=== PATIENT | male | born 1950 | race Caucasian/White ===

== ENCOUNTER → 2018-11-15 | Outpatient (CLI) | payer MEDICARE, OTHER ==
--- NOTE | 2018-11-16 11:33 | SLEEPCENT ---
DATE OF STUDY: 11/15/2018 ORDERED BY: VON Morales Nocturnal polysomnography was performed for evaluation of sleep physiology in this patient with a history of snoring and irregular breathing in sleep, who has comorbidities of hypertension, cardiac dysrhythmia and cerebrovascular disease. 7 hours of 14 minutes of data were reviewed. There were 334 minutes of sleep identified. Sleep latency was mildly prolonged at 17 minutes. REM latency was prolonged at 120 minutes. Sleep architecture showed fragmentation. There was fair sleep progression with three REM cycles noted. Overall sleep REM time out was however diminished, and sleep efficiency was 77.8%. The electrocardiogram showed what appeared to be sinus rhythm with an average heart rate of 54 beats per minute. Some ectopy was seen and rate variability was seen 38-70 beats per minute. EEG showed fairly normal waveforms for awake and sleep. There were no focal events. There were 32 respiratory events identified of 10 seconds in duration or greater for an apnea-hypopnea index of 5.6. The events were primarily obstructive, not exclusive to sleep stage nor to body posture. Arousals from respiratory events occurred 2.7 times per hour. Significant snoring was noted over the course of the test. Some activity was also seen in the EMG limb leads, however limb movement arousal index was only 2.5. Oxygen desaturations were seen below 90%. The oxygen desaturation index was 01. IMPRESSION: Mild obstructive sleep apnea syndrome (G47.33). Apnea-hypopnea index 5.6. RECOMMENDATION: As the patient's respiratory events did not appear to be postural, referral back to sleep disorder center for pressure therapy may need to be considered. In the interim, alcohol and sedative avoidance should be practiced and caution exercised during the operation of motor vehicles.
== END ==
LOC: M SLEEP 19:22
PROVIDERS: ATTEND Nurse Practitioner Family
DX: G47.33 Obstructive sleep apnea (adult) (pediatric) (principal)

== ENCOUNTER 2019-11-17 09:20 | Day surgery (SDC) | payer MEDICARE, OTHER ==
[~2019-11-17] VITALS: Ht 170.2 cm; Wt 77.6 kg
[~2019-11-17 09:20] MED LIST: ATOR40TA75 PO; ECOT81TA5 PO; HYDR-2809 PO; LEVO112T2 PO; LISI20TA19 PO; METO1TAB7 PO; NS 1,000 ML IV ONE; TRIC145T22 PO; XARE20TA PO
[2019-11-17] MEDS ORDERED: propofoL 200 MG/20 ML VIAL As Ordered ONE ×2 (11:24→11:37)
[2019-11-17] MEDS ORDERED: LIDOCAINE 2% INJ 100 MG/5 ML SDV (FOR ANES.) As Ordered ONE (11:24)
--- NOTE | 2019-11-17 11:37 | ROOR ---
Patient Name: Santo Salcido Procedure Date: 11/17/2019 11:15 AM Date of : 1950 Age: 69 Room: [facility] Gender: Male Note Status: Finalized Procedure: Colonoscopy Indications: High risk colon cancer surveillance: Personal history of colonic polyps Providers: Tyrone Dorado Jr, MD Referring MD: ADDY PIZARRO DO Requesting Provider: Medicines: Propofol per Anesthesia Complications: No immediate complications. Procedure: Pre-Anesthesia Assessment: - Prior to the procedure, a History and Physical was performed, and patient medications and allergies were reviewed. The patient is competent. The risks and benefits of the procedure and the sedation options and risks were discussed with the patient. All questions were answered and informed consent was obtained. Patient identification and proposed procedure were verified by the physician and the nurse in the pre-procedure area and in the procedure room. Mental Status Examination: alert and oriented. Airway Examination: normal oropharyngeal airway and neck mobility. Respiratory Examination: clear to auscultation. CV Examination: normal. ASA Grade Assessment: II - A patient with mild systemic disease. After reviewing the risks and benefits, the patient was deemed in satisfactory condition to undergo the procedure. The anesthesia plan was to use moderate sedation / analgesia (conscious sedation). Immediately prior to administration of medications, the patient was re-assessed for adequacy to receive sedatives. The heart rate, respiratory rate, oxygen saturations, blood pressure, adequacy of pulmonary ventilation, and response to care were monitored throughout the procedure. The physical status of the patient was re-assessed after the procedure. The Colonoscope was introduced through the anus and advanced to the cecum, identified by appendiceal orifice and ileocecal valve. The colonoscopy was performed without difficulty. The patient tolerated the procedure well. The quality of the bowel preparation was adequate. Findings: The rectum, recto-sigmoid colon, descending colon, transverse colon, ascending colon, cecum, appendiceal orifice and ileocecal valve appeared normal. A few small-mouthed diverticula were found in the sigmoid colon. Impression: - The rectum, recto-sigmoid colon, descending colon, transverse colon, ascending colon, cecum, appendiceal orifice and ileocecal valve are normal. - Diverticulosis in the sigmoid colon. - No specimens collected. Recommendation: - Discharge patient to home (ambulatory). - Repeat colonoscopy in 5 years for surveillance. Tyrone Dorado MD Tyrone Dorado Jr, MD 11/17/2019 11:36:51 AM Electronically signed by Tyrone Dorado Jr, MD Number of Addenda: 0 Note Initiated On: 11/17/2019 11:15 AM Estimated Blood Loss: Estimated blood loss: none.
[2019-11-17 11:54] VITALS: BP 128/82
== END 2019-11-17 12:00 | disposition home or self-care (01) ==
LOC: M OPP 09:20
PROVIDERS: ATTEND Surgery
DX: Z12.11 Encounter for screening for malignant neoplasm of colon (principal); Z86.010 Personal history of colon polyps; K57.30 Diverticulosis of large intestine without perforation or abscess without bleeding; I50.9 Heart failure, unspecified; I48.91 Unspecified atrial fibrillation; Z79.82 Long term (current) use of aspirin; Z79.891 Long term (current) use of opiate analgesic; Z79.899 Other long term (current) drug therapy; Z87.891 Personal history of nicotine dependence; Z95.810 Presence of automatic (implantable) cardiac defibrillator

== ENCOUNTER 2022-07-01 09:22 | Inpatient (IN) | payer MEDICARE, OTHER ==
[~2022-07-01] VITALS: Ht 167.6 cm; Wt 76.6 kg
[~2022-07-01 09:22] MED LIST changes: -HYDR-2809 PO; +HYDR-4431 PO; -LISI20TA19 PO; +LISI20TA35 PO; -NS 1,000 ML IV ONE
[2022-07-01] MEDS ORDERED: MORPHINE 4 MG/ML 1ML VIAL/SYRINGE IV ONE (13:25)
[2022-07-01] MEDS ORDERED: NS 1,000 ML IV ONE (13:25)
[2022-07-01] MEDS ORDERED: ONDANSETRON 4MG 2ML VIAL IV ONE (13:25)
[2022-07-01 13:58] LABS: BASO # 0.1 10^3/uL (0.0-0.2); BASO % 0.4 % (0.0-1.0); EOS % 0.2 % (0.0-3.0); HEMATOCRIT 40.8 % (42.0-52.0); HEMOGLOBIN 13.5 g/dl (13.5-17.5); LYMPH # 1.1 10^3/uL (1.5-5.0); LYMPH % 8.9 % (24.0-44.0); MEAN CORPUSCULAR HEMOGLOBIN 30.3 pg (27.0-33.0); MEAN CORPUSCULAR HGB CONC 33.1 g/dl (32.0-36.5); MEAN CORPUSCULAR VOLUME 91.7 fl (80.0-96.0); MONO # 1.1 10^3/uL (0.0-0.8); MONO % 9.1 % (2.0-8.0); NEUTROPHILS % 81.1 % (36.0-66.0); PLATELET COUNT, AUTOMATED 330 10^3/uL (150-450); RED BLOOD COUNT 4.45 10^6/uL (4.30-6.10); WHITE BLOOD COUNT 12.4 10^3/uL (4.0-10.0)
[2022-07-01] MEDS ORDERED: ISOVUE-370 76% 100ML VIAL As Ordered ONE (14:04)
[2022-07-01 14:36] LABS: ALBUMIN 3.9 GM/DL (3.2-5.2); BILIRUBIN,DIRECT 0.7 MG/DL (0.0-0.2); BILIRUBIN,TOTAL 3.3 MG/DL (0.2-1.0); TOTAL PROTEIN 7.3 GM/DL (6.4-8.2)
[2022-07-01] MEDS ORDERED: PIPERACILLIN/TAZOBACTAM SOD 3.375 GM in D5W MINI-BAG PLUS 50 ML IV ONE (14:45)
[2022-07-01 15:05] LABS: CK-MB VALUE MASS < 1.0 NG/ML (<3.6); CPK CREATINE PHOSPHOKINASE 41 U/L (39-308); MB/CK RELATIVE INDEX 2.44 (< OR =4)
[2022-07-01] MEDS ORDERED: FENO48TA8 PO (15:13)
[2022-07-01] MEDS ORDERED: ACET-897 PO (15:13)
[2022-07-01] MEDS ORDERED: HOME MED LIST COMPLETE! XX SCH (15:15)
[2022-07-01 15:36] LABS: RSV AMPLIFICATION NEGATIVE (NEGATIVE)
[2022-07-01] MEDS ORDERED: BUPIVACAINE HCL 0.25% 30ML VIAL As Ordered ONE (16:20)
[2022-07-01] MEDS ORDERED: LIDOCAINE 1% SDV 30ML VIAL As Ordered ONE (16:20)
[2022-07-01] MEDS ORDERED: fentaNYL 250 MCG/5 ML INJECTION As Ordered ONE (16:50)
[2022-07-01] MEDS ORDERED: ROCURONIUM BROMIDE 50 MG/5 ML VIAL As Ordered ONE ×2 (16:50→17:50)
[2022-07-01] MEDS ORDERED: propofoL 200 MG/20 ML VIAL As Ordered ONE (16:50)
[2022-07-01] MEDS ORDERED: MIDAZOLAM INJ 2MG/2ML VIAL (J2250 PER 1MG) As Ordered ONE (16:50)
[2022-07-01] MEDS ORDERED: LIDOCAINE 2% 100MG/5ML SDV (FOR ANES.) As Ordered ONE (16:50)
[2022-07-01] MEDS ORDERED: SUGAMMADEX SODIUM 500 MG/5 ML VIAL (BRIDION) As Ordered ONE (16:51)
[2022-07-01] MEDS ORDERED: PHENYLephrine 500MCG 5ML (100MCG/ML) SYRINGE As Ordered ONE (17:18)
[2022-07-01] MEDS ORDERED: dexameTHASONE 4 MG/ML 1ML VIAL (J1100 PER 1MG) As Ordered ONE (17:31)
[2022-07-01] MEDS ORDERED: METHYLENE BLUE 0.5% (5MG/ML) 10 ML AMP (PROVAYBLUE) As Ordered ONE (17:40)
[2022-07-01] MEDS ORDERED: ePHEDrine SULFATE 25 MG/5 ML(5MG/ML) SYRINGE As Ordered ONE (18:37)
[2022-07-01] MEDS ORDERED: ACETAMINOPHEN 1000MG 100ML IV BTL (OFIRMEV) (J0131 PER 10MG) As Ordered ONE (19:17)
[2022-07-01] MEDS ORDERED: ONDANSETRON 4MG 2ML VIAL As Ordered ONE (19:25)
[2022-07-01] MEDS ORDERED: MORPHINE 4 MG/ML 1ML VIAL/SYRINGE IV PRN (19:40)
[2022-07-01] MEDS ORDERED: MORPHINE 2 MG/ML 1ML VIAL IV PRN (19:40)
[2022-07-01] MEDS ORDERED: LR 1,000 ML IV SCH (19:40)
[2022-07-01] MEDS ORDERED: fentaNYL 100 MCG/2 ML INJECTION IV PRN (19:40)
[2022-07-01] MEDS ORDERED: ONDANSETRON 4MG 2ML VIAL IV PRN (19:40)
[2022-07-01] MEDS ORDERED: PERCOCET 5MG/325MG TAB PO PRN ×3 (19:40)
[2022-07-01 20:49] VITALS: BP 147/67
[2022-07-01] MEDS ORDERED: KETOROLAC 30 MG/ML 1ML VIAL IV SCH (21:00)
[2022-07-01] MEDS: METOPROLOL SUCC *XL* 25MG TAB (TopROL *XL*) PO SCH (21:00)
[2022-07-01] MEDS: PANTOPRAZOLE 40MG VIAL IV SCH (21:19)
[2022-07-01 21:20] VITALS: BP 130/60
[2022-07-01] MEDS: PIPERACILLIN/TAZOBACTAM SOD 3.375 GM in D5W MINI-BAG PLUS 50 ML IV SCH (21:24)
[2022-07-01 22:00] VITALS: BP 110/55
[2022-07-01 23:00] VITALS: BP 111/59
[2022-07-01 23:46] VITALS: BP 107/53
[2022-07-02] VITALS (7 sets, daily range): BP systolic 107–144; BP diastolic 52–71
[2022-07-02] MEDS: PIPERACILLIN/TAZOBACTAM SOD 3.375 GM in D5W MINI-BAG PLUS 50 ML IV SCH ×4 (02:34→21:38)
[2022-07-02] MEDS: LEVOTHYROXINE 112MCG TABLET (0.112MG) PO SCH (05:07)
[2022-07-02] MEDS: LR 1,000 ML IV SCH ×2 (08:53→18:57)
[2022-07-02] MEDS: PANTOPRAZOLE 40MG VIAL IV SCH ×2 (08:53→21:38)
[2022-07-02 09:23] LABS: BASO % 0.1 % (0.0-1.0); HEMOGLOBIN 11.7 g/dl (13.5-17.5); LYMPH # 0.4 10^3/uL (1.5-5.0); LYMPH % 4.4 % (24.0-44.0); MEAN CORPUSCULAR HGB CONC 34.4 g/dl (32.0-36.5); MEAN CORPUSCULAR VOLUME 89.9 fl (80.0-96.0); MONO # 0.4 10^3/uL (0.0-0.8); NEUTROPHILS # 8.2 10^3/uL (1.5-8.5); NEUTROPHILS % 91.1 % (36.0-66.0); PLATELET COUNT, AUTOMATED 272 10^3/uL (150-450); RED BLOOD COUNT 3.78 10^6/uL (4.30-6.10)
[2022-07-02 09:51] LABS: BLOOD UREA NITROGEN 19 MG/DL (7-18); CALCIUM LEVEL 8.9 MG/DL (8.8-10.2); CARBON DIOXIDE LEVEL 26 MEQ/L (21-32); CHLORIDE LEVEL 105 MEQ/L (98-107); CREATININE FOR GFR 1.12 MG/DL (0.70-1.30); GLOMERULAR FILTRATION RATE > 60.0 (>42); GLUCOSE, FASTING 121 MG/DL (70-100); POTASSIUM SERUM 4.2 MEQ/L (3.5-5.1); SODIUM LEVEL 138 MEQ/L (136-145)
[2022-07-02] MEDS: ENOXAPARIN 40MG/0.4ML SYRINGE (J1650 PER 10MG) SC SCH (14:17)
[2022-07-02] MEDS: MORPHINE 2 MG/ML 1ML VIAL IV PRN ×2 (14:27→21:48)
[2022-07-03] VITALS: BP 135/65
[2022-07-03] MEDS: PIPERACILLIN/TAZOBACTAM SOD 3.375 GM in D5W MINI-BAG PLUS 50 ML IV SCH ×4 (03:50→20:37)
[2022-07-03 04:00] VITALS: BP 134/69
[2022-07-03] MEDS: LR 1,000 ML IV SCH ×2 (04:40→14:36)
[2022-07-03 05:44] LABS: BASO % 0.2 % (0.0-1.0); EOS % 0.3 % (0.0-3.0); HEMATOCRIT 33.9 % (42.0-52.0); LYMPH # 1.2 10^3/uL (1.5-5.0); LYMPH % 11.3 % (24.0-44.0); MEAN CORPUSCULAR HEMOGLOBIN 29.5 pg (27.0-33.0); MEAN CORPUSCULAR HGB CONC 32.4 g/dl (32.0-36.5); MEAN CORPUSCULAR VOLUME 90.9 fl (80.0-96.0); MONO # 0.6 10^3/uL (0.0-0.8); MONO % 5.5 % (2.0-8.0); NEUTROPHILS # 8.6 10^3/uL (1.5-8.5); NEUTROPHILS % 82.4 % (36.0-66.0); PLATELET COUNT, AUTOMATED 275 10^3/uL (150-450); RED BLOOD COUNT 3.73 10^6/uL (4.30-6.10); WHITE BLOOD COUNT 10.4 10^3/uL (4.0-10.0)
[2022-07-03 06:41] LABS: BLOOD UREA NITROGEN 14 MG/DL (7-18); C REACTIVE PROTEIN QUANTITATIV 7.08 MG/DL (0.00-0.30); CALCIUM LEVEL 8.8 MG/DL (8.8-10.2); CARBON DIOXIDE LEVEL 28 MEQ/L (21-32); CHLORIDE LEVEL 108 MEQ/L (98-107); CREATININE FOR GFR 0.83 MG/DL (0.70-1.30); GLOMERULAR FILTRATION RATE > 60.0 (>42); GLUCOSE, FASTING 95 MG/DL (70-100); POTASSIUM SERUM 3.9 MEQ/L (3.5-5.1); SODIUM LEVEL 141 MEQ/L (136-145)
[2022-07-03 07:43] VITALS: BP 153/71
[2022-07-03] MEDS: PANTOPRAZOLE 40MG VIAL IV SCH ×2 (08:01→20:37)
[2022-07-03] MEDS: ENOXAPARIN 40MG/0.4ML SYRINGE (J1650 PER 10MG) SC SCH (08:02)
[2022-07-03] MEDS: MORPHINE 2 MG/ML 1ML VIAL IV PRN ×2 (08:02→17:54)
[2022-07-03] MEDS ORDERED: CHLORASEPTIC SPRAY MT PRN (08:35)
[2022-07-03] MEDS ORDERED: GASTROGRAFIN SOLUTION 30ML (Q9963) As Ordered ONE (09:12)
[2022-07-03 11:58] VITALS: BP 159/72
[2022-07-03 16:00] VITALS: BP 144/67
[2022-07-03 20:00] VITALS: BP 148/70
[2022-07-03] MEDS: ACETAMINOPHEN TAB 650MG DOSE (2X325MG) PO PRN (20:38)
[2022-07-04] VITALS (7 sets, daily range): BP systolic 143–158; BP diastolic 70–80
[2022-07-04] MEDS: LR 1,000 ML IV SCH (00:40)
[2022-07-04] MEDS: MORPHINE 2 MG/ML 1ML VIAL IV PRN ×3 (00:52→18:59)
[2022-07-04] MEDS: PIPERACILLIN/TAZOBACTAM SOD 3.375 GM in D5W MINI-BAG PLUS 50 ML IV SCH ×2 (02:09→09:03)
[2022-07-04] MEDS: ACETAMINOPHEN TAB 650MG DOSE (2X325MG) PO PRN ×2 (05:45→20:57)
[2022-07-04 05:51] LABS: BASO % 0.7 % (0.0-1.0); EOS # 0.1 10^3/uL (0.0-0.5); EOS % 2.2 % (0.0-3.0); HEMATOCRIT 32.6 % (42.0-52.0); HEMOGLOBIN 10.5 g/dl (13.5-17.5); LYMPH # 1.1 10^3/uL (1.5-5.0); LYMPH % 19.6 % (24.0-44.0); MEAN CORPUSCULAR HEMOGLOBIN 29.5 pg (27.0-33.0); MEAN CORPUSCULAR HGB CONC 32.2 g/dl (32.0-36.5); MEAN CORPUSCULAR VOLUME 91.6 fl (80.0-96.0); MONO # 0.5 10^3/uL (0.0-0.8); MONO % 8.5 % (2.0-8.0); NEUTROPHILS # 3.7 10^3/uL (1.5-8.5); NEUTROPHILS % 68.8 % (36.0-66.0); PLATELET COUNT, AUTOMATED 262 10^3/uL (150-450); RED BLOOD COUNT 3.56 10^6/uL (4.30-6.10); WHITE BLOOD COUNT 5.4 10^3/uL (4.0-10.0)
[2022-07-04] MEDS ORDERED: MORPHINE 2 MG/ML 1ML VIAL IV ONE (05:55)
[2022-07-04 06:22] LABS: BLOOD UREA NITROGEN 12 MG/DL (7-18); C REACTIVE PROTEIN QUANTITATIV 3.19 MG/DL (0.00-0.30); CALCIUM LEVEL 8.7 MG/DL (8.8-10.2); CARBON DIOXIDE LEVEL 27 MEQ/L (21-32); CHLORIDE LEVEL 107 MEQ/L (98-107); CREATININE FOR GFR 0.85 MG/DL (0.70-1.30); GLOMERULAR FILTRATION RATE > 60.0 (>42); GLUCOSE, FASTING 81 MG/DL (70-100); POTASSIUM SERUM 3.7 MEQ/L (3.5-5.1); SODIUM LEVEL 141 MEQ/L (136-145)
[2022-07-04] MEDS: ENOXAPARIN 40MG/0.4ML SYRINGE (J1650 PER 10MG) SC SCH (09:02)
[2022-07-04] MEDS: PANTOPRAZOLE 40MG VIAL IV SCH ×2 (09:02→20:57)
[2022-07-04] MEDS: NORCO, ANEXSIA 5/325MG TABLET (HYDROcodone/ACETAMINOPHEN) PO PRN ×2 (09:18→15:28)
[2022-07-04] MEDS: ATORVASTATIN 20 MG TAB PO SCH (10:29)
[2022-07-04] MEDS: hydroCHLOROthiazide 12.5 MG CAPSULE PO SCH (10:30)
[2022-07-04] MEDS: LEVOTHYROXINE 112MCG TABLET (0.112MG) PO SCH (11:05)
[2022-07-04] MEDS: FENOFIBRATE 48MG TABLET (TRICOR) PO SCH (12:02)
[2022-07-04] MEDS ORDERED: cefTRIAXone SOD 2 GM in D5W MINI-BAG PLUS 50 ML IV SCH (15:00)
[2022-07-04] MEDS: metroNIDAZOLE 500 MG in IV 1 EA IV SCH ×2 (16:08→23:54)
[2022-07-04] MEDS ORDERED: RIVAROXABAN 20MG TAB (XARELTO) PO SCH (18:00)
[2022-07-04] MEDS: METOPROLOL SUCC *XL* 25MG TAB (TopROL *XL*) PO SCH (20:58)
[2022-07-05] VITALS: BP 156/81
[2022-07-05 05:00] VITALS: BP 158/72
[2022-07-05 06:41] LABS: BASO # 0.1 10^3/uL (0.0-0.2); EOS # 0.1 10^3/uL (0.0-0.5); EOS % 2.4 % (0.0-3.0); HEMATOCRIT 35.2 % (42.0-52.0); HEMOGLOBIN 11.6 g/dl (13.5-17.5); LYMPH # 0.8 10^3/uL (1.5-5.0); LYMPH % 13.4 % (24.0-44.0); MEAN CORPUSCULAR HEMOGLOBIN 29.7 pg (27.0-33.0); MEAN CORPUSCULAR VOLUME 90.3 fl (80.0-96.0); MONO # 0.5 10^3/uL (0.0-0.8); MONO % 8.1 % (2.0-8.0); NEUTROPHILS # 4.4 10^3/uL (1.5-8.5); NEUTROPHILS % 74.6 % (36.0-66.0); PLATELET COUNT, AUTOMATED 297 10^3/uL (150-450)
[2022-07-05 07:05] LABS: BLOOD UREA NITROGEN 8 MG/DL (7-18); C REACTIVE PROTEIN QUANTITATIV 1.72 MG/DL (0.00-0.30); CARBON DIOXIDE LEVEL 30 MEQ/L (21-32); CHLORIDE LEVEL 105 MEQ/L (98-107); CREATININE FOR GFR 0.73 MG/DL (0.70-1.30); GLOMERULAR FILTRATION RATE > 60.0 (>42); GLUCOSE, FASTING 105 MG/DL (70-100); POTASSIUM SERUM 3.8 MEQ/L (3.5-5.1); SODIUM LEVEL 140 MEQ/L (136-145)
[2022-07-05 08:36] VITALS: BP 123/85
[2022-07-05] MEDS: PANTOPRAZOLE 40MG VIAL IV SCH (08:47)
[2022-07-05] MEDS: metroNIDAZOLE 500 MG in IV 1 EA IV SCH (08:47)
[2022-07-05] MEDS: hydroCHLOROthiazide 12.5 MG CAPSULE PO SCH (08:48)
[2022-07-05] MEDS: ATORVASTATIN 20 MG TAB PO SCH (08:48)
[2022-07-05] MEDS: FENOFIBRATE 48MG TABLET (TRICOR) PO SCH (09:35)
[2022-07-05] MEDS ORDERED: CEFD300C41 PO (10:51)
[2022-07-05] MEDS ORDERED: METO1TAB32 PO (10:51)
[2022-07-05] MEDS ORDERED: FLAG375C PO (10:53)
[2022-07-05] MEDS ORDERED: PROT1TAB2 PO (13:49)
== END 2022-07-05 12:33 | disposition home or self-care (01) | DRG 328 ==
LOC: M ED 09:22 → M ED INP 17:05 → M PCU 20:35
PROVIDERS: ADMIT Family Medicine; ATTEND Family Medicine
PROC: 0DU647Z Supplement Stomach with Autologous Tissue Substitute, Percutaneous Endoscopic Approach (ICD-10-PCS; principal; 2022-07-02)
DX: K28.5 Chronic or unspecified gastrojejunal ulcer with perforation (principal); M25.511 Pain in right shoulder; I48.91 Unspecified atrial fibrillation; I25.10 Atherosclerotic heart disease of native coronary artery without angina pectoris; E03.9 Hypothyroidism, unspecified; E78.5 Hyperlipidemia, unspecified; I25.2 Old myocardial infarction; G47.33 Obstructive sleep apnea (adult) (pediatric); M25.512 Pain in left shoulder; K29.80 Duodenitis without bleeding; K29.70 Gastritis, unspecified, without bleeding; Z79.890 Hormone replacement therapy; Z79.82 Long term (current) use of aspirin; Z87.891 Personal history of nicotine dependence; Z79.899 Other long term (current) drug therapy; Z79.01 Long term (current) use of anticoagulants; Z95.810 Presence of automatic (implantable) cardiac defibrillator

== ENCOUNTER → 2022-10-21 | Outpatient (CLI) | payer MEDICARE, OTHER ==
[~2022-10-21] MED LIST changes: +ACET-897 PO; +CEFD300C41 PO; +FENO48TA8 PO; +FLAG375C PO; +METO1TAB32 PO; +PROT1TAB2 PO
== END ==
LOC: M RAD 11:10
PROVIDERS: ATTEND Physician Assistant
DX: R06.09 Other forms of dyspnea (principal)

== ENCOUNTER → 2022-11-05 | Outpatient (CLI) | payer MEDICARE, OTHER ==
[~2022-11-05] MED LIST changes: +METO1TAB7
== END ==
LOC: M LABSMTC 10:29
PROVIDERS: ATTEND Anesthesiology
DX: Z01.812 Encounter for preprocedural laboratory examination (principal); Z20.822 Contact with and (suspected) exposure to COVID-19

== ENCOUNTER 2022-11-10 08:01 | Day surgery (SDC) | payer MEDICARE, OTHER ==
[~2022-11-10] VITALS: Ht 172.7 cm; Wt 71.7 kg
[~2022-11-10 08:01] MED LIST changes: +NS 1,000 ML IV ONE
[2022-11-10 10:24] VITALS: BP 123/69
== END 2022-11-10 10:26 | disposition home or self-care (01) ==
LOC: M OPP 08:01
PROVIDERS: ATTEND Surgery
DX: K25.5 Chronic or unspecified gastric ulcer with perforation (principal); K31.89 Other diseases of stomach and duodenum; I48.91 Unspecified atrial fibrillation; I25.10 Atherosclerotic heart disease of native coronary artery without angina pectoris; I10 Essential (primary) hypertension; E78.5 Hyperlipidemia, unspecified; E03.9 Hypothyroidism, unspecified; M19.90 Unspecified osteoarthritis, unspecified site; G47.30 Sleep apnea, unspecified; Z86.73 Personal history of transient ischemic attack (TIA), and cerebral infarction without residual deficits; Z95.810 Presence of automatic (implantable) cardiac defibrillator; Z79.82 Long term (current) use of aspirin; Z79.890 Hormone replacement therapy; Z79.899 Other long term (current) drug therapy

== ENCOUNTER → 2023-01-16 | Outpatient (CLI) | payer MEDICARE, OTHER ==
[~2023-01-16] MED LIST changes: +ISOVUE-300 61% 100ML VIAL As Ordered ONE; +LIDOCAINE 1% MDV 20ML VIAL As Ordered ONE; -NS 1,000 ML IV ONE
== END ==
LOC: M RAD 07:41
PROVIDERS: ATTEND Orthopaedic Surgery
DX: M75.102 Unspecified rotator cuff tear or rupture of left shoulder, not specified as traumatic (principal)
CPT/HCPCS: 23350; 73201; 77002; Q9967

== ENCOUNTER → 2023-02-09 | Outpatient (CLI) | payer MEDICARE, OTHER ==
[~2023-02-09] MED LIST changes: -ISOVUE-300 61% 100ML VIAL As Ordered ONE; -LIDOCAINE 1% MDV 20ML VIAL As Ordered ONE
[2023-02-09 12:38] LABS: APPEARANCE, URINE CLEAR (CLEAR); BACTERIA, URINE AUTO NEGATIVE (NEGATIVE); BILIRUBIN, URINE AUTO NEGATIVE (NEGATIVE); BLOOD, URINE BLOOD 2+ (NEGATIVE); COLOR, URINE YELLOW (YELLOW); GLUCOSE, URINE (UA) AUTO NEGATIVE (NEGATIVE); KETONE, URINE AUTO NEGATIVE (NEGATIVE); LEUKOCYTE ESTERASE, URINE AUTO NEGATIVE (NEGATIVE); MUCUS, URINE SMALL (NEGATIVE); NITRITE, URINE AUTO NEGATIVE (NEGATIVE); PROTEIN, URINE AUTO NEGATIVE (NEGATIVE); RBC, URINE AUTO 7 /HPF (0-3); SPECIFIC GRAVITY URINE AUTO 1.023 (1.002-1.035); SQUAMOUS EPITHELIAL CELL UR AU 0 /HPF (0-6); UROBILINOGEN, URINE AUTO 0.2 mg/dL (0.0-2.0); WBC, URINE AUTO 2 /HPF (0-3)
[2023-02-09 12:56] LABS: BASO # 0.1 10^3/uL (0.0-0.2); BASO % 0.6 % (0.0-1.0); EOS % 0.1 % (0.0-3.0); HEMATOCRIT 40.4 % (42.0-52.0); LYMPH # 0.9 10^3/uL (1.5-5.0); LYMPH % 11.2 % (24.0-44.0); MEAN CORPUSCULAR HEMOGLOBIN 28.7 pg (27.0-33.0); MEAN CORPUSCULAR HGB CONC 32.2 g/dl (32.0-36.5); MEAN CORPUSCULAR VOLUME 89.2 fl (80.0-96.0); MONO # 0.5 10^3/uL (0.0-0.8); MONO % 5.9 % (2.0-8.0); NEUTROPHILS # 6.6 10^3/uL (1.5-8.5); NEUTROPHILS % 81.8 % (36.0-66.0); PLATELET COUNT, AUTOMATED 363 10^3/uL (150-450); RED BLOOD COUNT 4.53 10^6/uL (4.30-6.10); WHITE BLOOD COUNT 8.1 10^3/uL (4.0-10.0)
[2023-02-09 13:04] LABS: INR 1.49; PROTHROMBIN TIME 18.3 SECONDS (12.5-14.5)
[2023-02-09 13:17] LABS: ALKALINE PHOSPHATASE 51 U/L (46-116); ALT/SGPT 21 U/L (7.0-40); AST/SGOT 26 U/L (<34); BILIRUBIN,TOTAL 2.2 MG/DL (0.3-1.2); BLOOD UREA NITROGEN 17 MG/DL (9-23); CALCIUM LEVEL 9.8 MG/DL (8.3-10.6); CARBON DIOXIDE LEVEL 26 MMOL/L (20-31); CHLORIDE LEVEL 103 MMOL/L (98-107); CREATININE FOR GFR 0.93 MG/DL (0.70-1.30); GLOMERULAR FILTRATION RATE > 60.0 (>42); GLUCOSE, FASTING 91 MG/DL (74-106); POTASSIUM SERUM 4.1 MMOL/L (3.5-5.1); SODIUM LEVEL 138 MMOL/L (136-145); TOTAL 25(OH) VITAMIN D 13.5 NG/ML (20.0-100.0); TOTAL PROTEIN 6.7 G/DL (5.7-8.2)
== END ==
LOC: M LAB 11:47
PROVIDERS: ATTEND Orthopaedic Surgery
DX: M75.122 Complete rotator cuff tear or rupture of left shoulder, not specified as traumatic (principal); Z79.01 Long term (current) use of anticoagulants; Z79.899 Other long term (current) drug therapy

== ENCOUNTER → 2023-03-19 | Outpatient (CLI) | payer MEDICARE, OTHER | LOC: M RAD 15:24 | PROVIDERS: ATTEND Surgery Vascular Surgery | DX: I65.23 Occlusion and stenosis of bilateral carotid arteries (principal) ==

== ENCOUNTER → 2023-06-18 | Outpatient (CLI) | payer MEDICARE, OTHER ==
[2023-06-18 09:32] LABS: BASO # 0.1 10^3/uL (0.0-0.2); BASO % 1.2 % (0.0-1.0); EOS # 0.2 10^3/uL (0.0-0.5); EOS % 2.7 % (0.0-3.0); HEMOGLOBIN 10.7 g/dl (13.5-17.5); LYMPH % 16.9 % (24.0-44.0); MEAN CORPUSCULAR HEMOGLOBIN 26.8 pg (27.0-33.0); MEAN CORPUSCULAR HGB CONC 31.5 g/dl (32.0-36.5); MEAN CORPUSCULAR VOLUME 85.2 fl (80.0-96.0); MONO # 0.6 10^3/uL (0.0-0.8); MONO % 10.2 % (2.0-8.0); NEUTROPHILS # 4.1 10^3/uL (1.5-8.5); NEUTROPHILS % 68.7 % (36.0-66.0); PLATELET COUNT, AUTOMATED 378 10^3/uL (150-450); RED BLOOD COUNT 3.99 10^6/uL (4.30-6.10)
[2023-06-18 09:45] LABS: APPEARANCE, URINE HAZY (CLEAR); BACTERIA, URINE AUTO 1+ (NEGATIVE); BILIRUBIN, URINE AUTO NEGATIVE (NEGATIVE); BLOOD, URINE BLOOD 1+ (NEGATIVE); COLOR, URINE YELLOW (YELLOW); GLUCOSE, URINE (UA) AUTO NEGATIVE (NEGATIVE); KETONE, URINE AUTO TRACE mg/dL (NEGATIVE); LEUKOCYTE ESTERASE, URINE AUTO NEGATIVE (NEGATIVE); MUCUS, URINE SMALL (NEGATIVE); NITRITE, URINE AUTO NEGATIVE (NEGATIVE); PROTEIN, URINE AUTO NEGATIVE (NEGATIVE); RBC, URINE AUTO 5 /HPF (0-3); SPECIFIC GRAVITY URINE AUTO 1.021 (1.002-1.035); SQUAMOUS EPITHELIAL CELL UR AU 0 /HPF (0-6); WBC, URINE AUTO 3 /HPF (0-3)
[2023-06-18 09:57] LABS: THYROID STIMULATING HORMONE 4.309 uIU/ML (0.55-4.78)
[2023-06-18 10:03] LABS: ALKALINE PHOSPHATASE 52 U/L (46-116); ALT/SGPT 18 U/L (7.0-40); AST/SGOT 18 U/L (<34); BLOOD UREA NITROGEN 21 MG/DL (9-23); CALCIUM LEVEL 9.5 MG/DL (8.3-10.6); CARBON DIOXIDE LEVEL 27 MMOL/L (20-31); CHLORIDE LEVEL 102 MMOL/L (98-107); CHOLESTEROL LEVEL 173 MG/DL (<200); CHOLESTEROL RISK RATIO 1.94 (<5); CREATININE FOR GFR 1.05 MG/DL (0.70-1.30); GLOMERULAR FILTRATION RATE > 60.0 (>42); GLUCOSE, FASTING 96 MG/DL (74-106); HDL CHOLESTEROL 89.1 MG/DL (>40); LDL CHOLESTEROL 69.9 MG/DL (<100); NON-HDL-C 83.9 MG/DL; POTASSIUM SERUM 4.1 MMOL/L (3.5-5.1); SODIUM LEVEL 138 MMOL/L (136-145); TOTAL PROTEIN 6.5 G/DL (5.7-8.2); TRIGLYCERIDES LEVEL 70 MG/DL (<150)
== END ==
LOC: M LAB 08:59
PROVIDERS: ATTEND Family Medicine
DX: I10 Essential (primary) hypertension (principal); E78.5 Hyperlipidemia, unspecified; I25.10 Atherosclerotic heart disease of native coronary artery without angina pectoris

== ENCOUNTER → 2023-10-19 | Outpatient (CLI) | payer MEDICARE, OTHER ==
[~2023-10-19] MED LIST changes: +CEFD1CAP9 PO; -CEFD300C41 PO
== END ==
LOC: M RAD 11:04
PROVIDERS: ATTEND Physician Assistant
DX: I65.23 Occlusion and stenosis of bilateral carotid arteries (principal); Z95.828 Presence of other vascular implants and grafts

== ENCOUNTER → 2024-06-08 | Outpatient (CLI) | payer MEDICARE, OTHER | LOC: M RAD 13:35 | PROVIDERS: ATTEND Physician Assistant | DX: I65.23 Occlusion and stenosis of bilateral carotid arteries (principal) ==

== ENCOUNTER → 2024-07-06 | Outpatient (CLI) | payer MEDICARE, OTHER ==
[~2024-07-06] MED LIST changes: +ISOVUE-370 76% 100ML VIAL As Ordered ONE
== END ==
LOC: M RAD 09:37
PROVIDERS: ATTEND Physician Assistant
DX: I65.23 Occlusion and stenosis of bilateral carotid arteries (principal); Z95.828 Presence of other vascular implants and grafts
CPT/HCPCS: 70496; 70498; Q9967

== ENCOUNTER → 2024-10-11 | Outpatient (CLI) | payer MEDICARE, OTHER ==
[~2024-10-11] MED LIST changes: -ISOVUE-370 76% 100ML VIAL As Ordered ONE
== END ==
LOC: M PLAIMG 13:08
PROVIDERS: ATTEND Registered Nurse
DX: I47.29 Other ventricular tachycardia (principal)

== ENCOUNTER → 2025-02-02 | Outpatient (CLI) | payer MEDICARE, OTHER | LOC: M RAD 12:02 | PROVIDERS: ATTEND Internal Medicine Cardiovascular Disease | DX: R06.02 Shortness of breath (principal) ==

== ENCOUNTER → 2025-05-08 | Outpatient (CLI) | payer MEDICARE, OTHER ==
[2025-05-08 09:27] LABS: CREATININE FOR GFR 2.36 MG/DL (0.70-1.30); GLOMERULAR FILTRATION RATE 28.2 (>42)
== END ==
LOC: M LAB 07:58
PROVIDERS: ATTEND Physician Assistant
DX: I65.23 Occlusion and stenosis of bilateral carotid arteries (principal)

== ENCOUNTER → 2025-05-22 | Outpatient (CLI) | payer MEDICARE, OTHER ==
[2025-05-22 10:18] LABS: CALCIUM LEVEL 9.6 MG/DL (8.3-10.6); CARBON DIOXIDE LEVEL 27.0 MMOL/L (20-31); CHLORIDE LEVEL 102.0 MMOL/L (98-107); CREATININE FOR GFR 2.26 MG/DL (0.70-1.30); GLOMERULAR FILTRATION RATE 29.7 (>42); POTASSIUM SERUM 4.9 MMOL/L (3.5-5.1); SODIUM LEVEL 139.0 MMOL/L (136-145)
== END ==
LOC: M LAB 08:31
PROVIDERS: ATTEND Physician Assistant
DX: I65.23 Occlusion and stenosis of bilateral carotid arteries (principal)

== ENCOUNTER 2025-06-07 17:42 | Inpatient (IN) | payer MEDICARE, OTHER ==
[~2025-06-07] VITALS: Ht 167.6 cm; Wt 65.9 kg
[2025-06-07] MEDS ORDERED: CLOP75TA2 PO (17:50)
[2025-06-07 18:43] LABS: BASO # 0.0 10^3/uL (0.0-0.2); BASO % 0.3 % (0.0-1.0); EOS # 0.0 10^3/uL (0.0-0.5); EOS % 0.1 % (0.0-3.0); LYMPH # 0.5 10^3/uL (1.5-5.0); LYMPH % 5.1 % (24.0-44.0); MONO # 0.5 10^3/uL (0.0-0.8); MONO % 4.4 % (2.0-8.0); NEUTROPHILS # 9.3 10^3/uL (1.5-8.5); NEUTROPHILS % 89.8 % (36.0-66.0); PLATELET COUNT, AUTOMATED 318 10^3/uL (150-450)
[2025-06-07] MEDS: MORPHINE 4 MG/ML 1 ML VIAL IV PRN (19:52)
[2025-06-07] MEDS: ONDANSETRON 4MG 2ML VIAL IV ONE (19:52)
[2025-06-07 19:58] LABS: ALT/SGPT 29.0 U/L (7.0-40); AST/SGOT 39.0 U/L (<34); CALCIUM LEVEL 9.0 MG/DL (8.3-10.6); CARBON DIOXIDE LEVEL 26.8 MMOL/L (20-31); CHLORIDE LEVEL 102.0 MMOL/L (98-107); CREATININE FOR GFR 1.23 MG/DL (0.70-1.30); GLOMERULAR FILTRATION RATE 61.6 (>42); POTASSIUM SERUM 3.5 MMOL/L (3.5-5.1); SODIUM LEVEL 137.0 MMOL/L (136-145)
[2025-06-07 19:59] LABS: CK-MB VALUE MASS 3.1 NG/ML (<3.6); CPK CREATINE PHOSPHOKINASE 314.0 U/L (46-171); MB/CK RELATIVE INDEX 0.98 (< OR =4)
[2025-06-07] MEDS ORDERED: ISOVUE-370 76% 100 ML VIAL As Ordered ONE (20:29)
[2025-06-07] MEDS: NS (Normal Saline) 0.9% 1,000 ML IV ONE (20:45)
[2025-06-07] MEDS: PIPERACILLIN/TAZOBACTAM SOD 3.375 GM in DEXTROSE 5% (D5W) ADV/MINI-BAG 50 ML IV ONE (21:12)
[2025-06-07] MEDS: [UNRECOGNIZED DRUG - OTHER] IV ONE (21:20)
[2025-06-07] MEDS: NS 0.9% IV ONE (21:20)
[2025-06-07] MEDS ORDERED: LEVO100T5 PO (21:25)
[2025-06-07] MEDS ORDERED: PANT-23 PO (21:25)
[2025-06-07] MEDS ORDERED: ATOR80TA59 PO (21:25)
[2025-06-07] MEDS ORDERED: BISO5TAB14 PO (21:26)
[2025-06-07] MEDS ORDERED: VITA100093 PO (21:29)
[2025-06-07] MEDS ORDERED: IPRA3SP (21:29)
[2025-06-07] MEDS ORDERED: AMIO200T54 PO (21:29)
[2025-06-07] MEDS ORDERED: HOME MED LIST COMPLETE! XX SCH (21:30)
[2025-06-07 21:38] LABS: CK-MB VALUE MASS 3.2 NG/ML (<3.6); CPK CREATINE PHOSPHOKINASE 262.0 U/L (46-171); MB/CK RELATIVE INDEX 1.22 (< OR =4)
[2025-06-07] MEDS ORDERED: ROCURONIUM BROMIDE 50MG/5ML VIAL As Ordered ONE (21:46)
[2025-06-07] MEDS ORDERED: MIDAZOLAM INJ 2 MG/2 ML VIAL As Ordered ONE (21:46)
[2025-06-07] MEDS ORDERED: LIDOCAINE 2% 100 MG/5 ML SDV (FOR ANES.) As Ordered ONE (21:46)
[2025-06-07] MEDS ORDERED: ETOMIDATE 20 MG/10 ML VIAL As Ordered ONE (21:46)
[2025-06-07] MEDS ORDERED: GLUCAGON INJ 1 MG VIAL As Ordered ONE (22:03)
[2025-06-07] MEDS: FACTOR XA,INACTIVATED-ZHZO 400 MG in APPROPRIATE DILUENT 40 ML IV ONE (22:17)
[2025-06-07 22:26] LABS: INR 2.73
[2025-06-07] MEDS: FACTOR XA,INACTIVATED-ZHZO 480 MG in APPROPRIATE DILUENT 48 ML IV ONE (22:28)
[2025-06-07] MEDS ORDERED: PHENYLephrine 500MCG 5ML (100MCG/ML) SYRINGE As Ordered ONE (23:12)
[2025-06-07] MEDS ORDERED: ONDANSETRON 4MG 2ML VIAL As Ordered ONE (23:43)
[2025-06-07] MEDS ORDERED: dexAMETHasone 4 MG/ML 1 ML VIAL As Ordered ONE (23:43)
[2025-06-07] MEDS ORDERED: SUGAMMADEX SODIUM 200 MG/2 ML VIAL As Ordered ONE (23:44)
[2025-06-07] MEDS ORDERED: ACETAMINOPHEN 1000MG/100ML IV BAG As Ordered ONE (23:44)
[2025-06-08] VITALS (25 sets, daily range): BP systolic 113–166; BP diastolic 54–65; TEMP 97–98; O2SAT 93–98
[2025-06-08] MEDS ORDERED: ONDANSETRON 4MG 2ML VIAL IV PRN ×2 (00:35→00:45)
[2025-06-08] MEDS ORDERED: MORPHINE 2 MG/ML 1 ML VIAL IV PRN (00:35)
[2025-06-08] MEDS ORDERED: HYDROmorphone HCL 2 MG/ML 1 ML VIAL IV PRN ×2 (00:45)
[2025-06-08] MEDS ORDERED: IPRATROPIUM 0.5 MG/ALBUTEROL 2.5 MG INH SOL UD 3 ML NEB PRN (00:45)
[2025-06-08 01:14] LABS: PLATELET COUNT, AUTOMATED 254 10^3/uL (150-450)
[2025-06-08] MEDS: IPRATROPIUM 0.5 MG/ALBUTEROL 2.5 MG INH SOL UD 3 ML NEB SCH (01:31)
[2025-06-08] MEDS: NS (Normal Saline) 0.9% 1,000 ML IV SCH (01:54)
[2025-06-08] MEDS: PIPERACILLIN/TAZOBACTAM SOD 3.375 GM in DEXTROSE 5% (D5W) ADV/MINI-BAG 50 ML IV SCH (03:18)
[2025-06-08] MEDS ORDERED: LEVOTHYROXINE 100 MCG TABLET (0.1 MG) PO SCH (06:00)
[2025-06-08] MEDS: LEVOTHYROXINE 100 MCG (0.1 MG) 5ML SDV PF (SOLUTION FORM) IV ONE (06:06)
[2025-06-08] MEDS ORDERED: hydrALAZINE 20 MG/ML 1 ML VIAL IV PRN (08:30)
[2025-06-08] MEDS: PANTOPRAZOLE 40MG VIAL IV SCH (08:48)
[2025-06-08 09:32] LABS: INR 1.71
[2025-06-08 09:43] LABS: BASO # 0.0 10^3/uL (0.0-0.2); BASO % 0.1 % (0.0-1.0); EOS # 0.0 10^3/uL (0.0-0.5); EOS % 0.0 % (0.0-3.0); LYMPH # 0.3 10^3/uL (1.5-5.0); LYMPH % 3.8 % (24.0-44.0); MONO # 0.1 10^3/uL (0.0-0.8); MONO % 1.6 % (2.0-8.0); NEUTROPHILS # 7.7 10^3/uL (1.5-8.5); NEUTROPHILS % 94.0 % (36.0-66.0); PLATELET COUNT, AUTOMATED 286 10^3/uL (150-450)
[2025-06-08 09:48] LABS: ALT/SGPT 26.0 U/L (7.0-40); AST/SGOT 38.0 U/L (<34); CALCIUM LEVEL 8.1 MG/DL (8.3-10.6); CARBON DIOXIDE LEVEL 23.0 MMOL/L (20-31); CHLORIDE LEVEL 105.0 MMOL/L (98-107); CREATININE FOR GFR 1.03 MG/DL (0.70-1.30); GLOMERULAR FILTRATION RATE 76.2 (>42); MAGNESIUM LEVEL 1.8 MG/DL (1.8-2.4); PHOSPHORUS LEVEL 3.0 MG/DL (2.4-5.1); POTASSIUM SERUM 3.5 MMOL/L (3.5-5.1); SODIUM LEVEL 142.0 MMOL/L (136-145)
[2025-06-08] MEDS ORDERED: KCL 20MEQ IN 100ML SWI (KRUN) 20 MEQ in IV 1 EA IV ONE (10:35)
[2025-06-08] MEDS: IPRATROPIUM 0.03% NASAL SPRAY 30 ML (ATROVENT) SCH (10:44)
[2025-06-08] MEDS: MAG SULF 1GM/100ML (MAG RUN) 1 GM in IV 1 EA IV SCH (10:44)
[2025-06-08] MEDS: KCL 10MEQ/100ML SWI (KRUN) 10 MEQ in IV 1 EA IV SCH (10:45)
[2025-06-08] MEDS ORDERED: KCL 10MEQ/100ML SWI (KRUN) 10 MEQ in IV 1 EA IV SCH (11:00)
[2025-06-08] MEDS: HYDROMORPHONE HCL 0.5 MG/0.5 ML SYRINGE IV PRN ×2 (12:14→16:02)
[2025-06-08] MEDS: BISOPROLOL FUM 2.5 MG PER 1/2 TAB PO SCH (20:00)
[2025-06-08] MEDS: AMIODARONE 100 MG TABLET PO SCH (20:00)
[2025-06-08] MEDS: ATORVASTATIN 20 MG TAB PO SCH (20:00)
[2025-06-09] VITALS: BP 114/65; TEMP 97; O2SAT 98
[2025-06-09 04:00] VITALS: BP 128/59; TEMP 97.4; O2SAT 97
[2025-06-09 05:32] LABS: PLATELET COUNT, AUTOMATED 268 10^3/uL (150-450)
[2025-06-09 05:56] LABS: CALCIUM LEVEL 8.3 MG/DL (8.3-10.6); CARBON DIOXIDE LEVEL 24.0 MMOL/L (20-31); CHLORIDE LEVEL 105.0 MMOL/L (98-107); CREATININE FOR GFR 1.01 MG/DL (0.70-1.30); GLOMERULAR FILTRATION RATE 78.0 (>42); POTASSIUM SERUM 4.2 MMOL/L (3.5-5.1); SODIUM LEVEL 140.0 MMOL/L (136-145)
[2025-06-09] MEDS: LEVOTHYROXINE 100 MCG TABLET (0.1 MG) PO SCH ×2 (05:56→13:51)
[2025-06-09 07:47] LABS: FREE T4 0.67 NG/DL (0.89-1.76)
[2025-06-09 08:00] VITALS: BP 141/65; TEMP 97.4; O2SAT 99
[2025-06-09 10:03] LABS: CORTISOL AM 2.3 UG/DL (4.3-22.4)
[2025-06-09 12:00] VITALS: BP 144/73; TEMP 97.5; O2SAT 99
[2025-06-09 16:00] VITALS: BP 146/75; TEMP 97.5; O2SAT 97
[2025-06-09 20:00] VITALS: BP 138/71; TEMP 97.1; O2SAT 98
[2025-06-10] VITALS: BP 141/75; TEMP 97.2; O2SAT 96
[2025-06-10 03:32] VITALS: BP 138/65; TEMP 97.9; O2SAT 97
[2025-06-10 05:16] LABS: PLATELET COUNT, AUTOMATED 301 10^3/uL (150-450)
[2025-06-10 05:39] LABS: CALCIUM LEVEL 8.0 MG/DL (8.3-10.6); CARBON DIOXIDE LEVEL 24.0 MMOL/L (20-31); CHLORIDE LEVEL 109.0 MMOL/L (98-107); CREATININE FOR GFR 1.01 MG/DL (0.70-1.30); GLOMERULAR FILTRATION RATE 78.0 (>42); POTASSIUM SERUM 3.6 MMOL/L (3.5-5.1); SODIUM LEVEL 144.0 MMOL/L (136-145)
[2025-06-10 08:02] VITALS: BP 149/72; TEMP 97.8; O2SAT 93
[2025-06-10] MEDS: ENOXAPARIN 40 MG/0.4 ML SYRINGE (J1650 PER 10MG) SC SCH (11:10)
[2025-06-10] MEDS: D5W/0.45% SODIUM CHLORIDE 1,000 ML IV SCH (11:52)
[2025-06-10 15:59] VITALS: BP 141/66; TEMP 97.1; O2SAT 96
[2025-06-10 16:15] VITALS: BP 147/78; TEMP 98.2; O2SAT 96
[2025-06-10 20:58] VITALS: BP 130/80; TEMP 98.1; O2SAT 96
[2025-06-11 04:20] VITALS: BP 135/70; TEMP 98.6; O2SAT 96
[2025-06-11 06:32] LABS: PLATELET COUNT, AUTOMATED 315 10^3/uL (150-450)
[2025-06-11 06:59] LABS: CALCIUM LEVEL 7.9 MG/DL (8.3-10.6); CARBON DIOXIDE LEVEL 25.0 MMOL/L (20-31); CHLORIDE LEVEL 108.0 MMOL/L (98-107); CREATININE FOR GFR 0.96 MG/DL (0.70-1.30); GLOMERULAR FILTRATION RATE 82.9 (>42); POTASSIUM SERUM 3.9 MMOL/L (3.5-5.1); SODIUM LEVEL 142.0 MMOL/L (136-145)
[2025-06-11] MEDS: D5W/0.45% SODIUM CHLORIDE 1,000 ML IV SCH (10:36)
[2025-06-11 11:56] VITALS: BP 139/72; TEMP 98.1; O2SAT 95
[2025-06-11 20:48] VITALS: BP 150/77; TEMP 98.6; O2SAT 95
[2025-06-12 03:33] VITALS: BP 150/79; TEMP 98.2; O2SAT 96
[2025-06-12 07:10] LABS: PLATELET COUNT, AUTOMATED 338 10^3/uL (150-450)
[2025-06-12 08:02] LABS: CALCIUM LEVEL 8.2 MG/DL (8.3-10.6); CARBON DIOXIDE LEVEL 25 MMOL/L (20-31); CHLORIDE LEVEL 108 MMOL/L (98-107); CREATININE FOR GFR 1.02 MG/DL (0.70-1.30); GLOMERULAR FILTRATION RATE 77.1 (>42); POTASSIUM SERUM 3.2 MMOL/L (3.5-5.1); SODIUM LEVEL 144 MMOL/L (136-145)
[2025-06-12 08:03] LABS: CORTISOL AM 23.4 UG/DL (4.3-22.4); FREE T4 0.77 NG/DL (0.89-1.76)
[2025-06-12] MEDS ORDERED: GASTROGRAFIN SOLUTION 30 ML As Ordered ONE (09:13)
[2025-06-12] MEDS: POTASSIUM CHLORIDE 10MEQ SR TABLET PO ONE (11:44)
[2025-06-12] MEDS: LEVOTHYROXINE 100 MCG (0.1 MG) 5ML SDV PF (SOLUTION FORM) IV SCH (11:44)
[2025-06-12 12:00] VITALS: BP 152/87; TEMP 98.6; O2SAT 98
[2025-06-12] MEDS: KCL 20MEQ IN D5/0.45NS 1000ML 1,000 ML IV SCH (12:34)
[2025-06-12] MEDS: CLOPIDOGREL 75 MG TAB PO SCH (12:35)
[2025-06-12 13:51] LABS: CALCIUM LEVEL 8.8 MG/DL (8.3-10.6); CARBON DIOXIDE LEVEL 27 MMOL/L (20-31); CHLORIDE LEVEL 106 MMOL/L (98-107); CREATININE FOR GFR 0.99 MG/DL (0.70-1.30); GLOMERULAR FILTRATION RATE 79.9 (>42); POTASSIUM SERUM 3.3 MMOL/L (3.5-5.1); SODIUM LEVEL 145 MMOL/L (136-145)
[2025-06-12 20:40] VITALS: BP 166/85; TEMP 98.6; O2SAT 96
[2025-06-13 03:54] VITALS: BP 152/80; TEMP 98.4; O2SAT 97
[2025-06-13 06:23] LABS: PLATELET COUNT, AUTOMATED 301 10^3/uL (150-450)
[2025-06-13 06:44] LABS: CALCIUM LEVEL 8.3 MG/DL (8.3-10.6); CARBON DIOXIDE LEVEL 25 MMOL/L (20-31); CHLORIDE LEVEL 105 MMOL/L (98-107); CREATININE FOR GFR 1.07 MG/DL (0.70-1.30); GLOMERULAR FILTRATION RATE 72.8 (>42); POTASSIUM SERUM 3.4 MMOL/L (3.5-5.1); SODIUM LEVEL 142 MMOL/L (136-145)
[2025-06-13] MEDS: RIVAROXABAN 20MG TAB PO SCH (09:20)
[2025-06-13] MEDS: POTASSIUM CHLORIDE 10MEQ SR TABLET PO ONE (09:21)
[2025-06-13 12:00] VITALS: BP 145/82; TEMP 99.3; O2SAT 97
[2025-06-13] MEDS: SPIRONOLACTONE 50 MG TAB PO SCH (18:07)
[2025-06-13 20:00] VITALS: BP_SYST 155; BP_SYST 156; BP_DIAS 77; BP_DIAS 86; TEMP 98.4; TEMP 99.3; O2SAT 92; O2SAT 98
[2025-06-14 04:00] VITALS: BP 130/75; TEMP 97.2; O2SAT 95
[2025-06-14 06:38] LABS: PLATELET COUNT, AUTOMATED 344 10^3/uL (150-450)
[2025-06-14] MEDS: LEVOTHYROXINE 112 MCG TABLET (0.112 MG) PO SCH (07:33)
[2025-06-14 07:40] LABS: CALCIUM LEVEL 8.8 MG/DL (8.3-10.6); CARBON DIOXIDE LEVEL 26 MMOL/L (20-31); CHLORIDE LEVEL 106 MMOL/L (98-107); CREATININE FOR GFR 1.15 MG/DL (0.70-1.30); GLOMERULAR FILTRATION RATE 66.8 (>42); POTASSIUM SERUM 4.1 MMOL/L (3.5-5.1); SODIUM LEVEL 142 MMOL/L (136-145)
[2025-06-14 11:46] VITALS: BP 121/72; TEMP 98.8; O2SAT 100
[2025-06-14 12:49] LABS: ALT/SGPT 24.0 U/L (7.0-40); AST/SGOT 32.0 U/L (<34)
[2025-06-14] MEDS ORDERED: PILL CUTTER 1 EACH XX PRN (14:55)
[2025-06-14] MEDS: SIMETHICONE 80MG CHEW TAB PO SCH (17:16)
[2025-06-14 17:17] VITALS: BP 144/88
[2025-06-14] MEDS: FUROSEMIDE 40 MG/4 ML VIAL IV ONE (17:17)
[2025-06-14 20:19] VITALS: BP 134/72; TEMP 98.2; O2SAT 97
[2025-06-15 04:27] VITALS: BP 132/78; TEMP 97.9; O2SAT 97
[2025-06-15 06:40] LABS: BASO # 0.0 10^3/uL (0.0-0.2); BASO % 0.5 % (0.0-1.0); EOS # 0.1 10^3/uL (0.0-0.5); EOS % 1.6 % (0.0-3.0); LYMPH # 0.8 10^3/uL (1.5-5.0); LYMPH % 13.8 % (24.0-44.0); MONO # 0.5 10^3/uL (0.0-0.8); MONO % 8.8 % (2.0-8.0); NEUTROPHILS # 4.1 10^3/uL (1.5-8.5); NEUTROPHILS % 74.6 % (36.0-66.0); PLATELET COUNT, AUTOMATED 332 10^3/uL (150-450)
[2025-06-15 07:17] LABS: CALCIUM LEVEL 8.6 MG/DL (8.3-10.6); CARBON DIOXIDE LEVEL 29.0 MMOL/L (20-31); CHLORIDE LEVEL 100.0 MMOL/L (98-107); CREATININE FOR GFR 1.28 MG/DL (0.70-1.30); FREE T4 1.05 NG/DL (0.89-1.76); GLOMERULAR FILTRATION RATE 58.7 (>42); MAGNESIUM LEVEL 1.9 MG/DL (1.8-2.4); POTASSIUM SERUM 3.7 MMOL/L (3.5-5.1); SODIUM LEVEL 138.0 MMOL/L (136-145)
[2025-06-15 12:32] VITALS: BP 129/73; TEMP 98.6; O2SAT 96
[2025-06-15 20:42] VITALS: BP 130/74; TEMP 98.2; O2SAT 96
[2025-06-16 03:56] VITALS: BP 120/70; TEMP 97.9; O2SAT 97
[2025-06-16 06:18] LABS: BASO # 0.0 10^3/uL (0.0-0.2); BASO % 0.4 % (0.0-1.0); EOS # 0.1 10^3/uL (0.0-0.5); EOS % 2.0 % (0.0-3.0); LYMPH # 0.8 10^3/uL (1.5-5.0); LYMPH % 14.3 % (24.0-44.0); MONO # 0.5 10^3/uL (0.0-0.8); MONO % 8.5 % (2.0-8.0); NEUTROPHILS # 4.1 10^3/uL (1.5-8.5); NEUTROPHILS % 74.3 % (36.0-66.0); PLATELET COUNT, AUTOMATED 394 10^3/uL (150-450)
[2025-06-16 06:42] LABS: CALCIUM LEVEL 8.9 MG/DL (8.3-10.6); CARBON DIOXIDE LEVEL 28.0 MMOL/L (20-31); CHLORIDE LEVEL 102.0 MMOL/L (98-107); CREATININE FOR GFR 1.04 MG/DL (0.70-1.30); GLOMERULAR FILTRATION RATE 75.4 (>42); MAGNESIUM LEVEL 2.0 MG/DL (1.8-2.4); POTASSIUM SERUM 4.4 MMOL/L (3.5-5.1); SODIUM LEVEL 140.0 MMOL/L (136-145)
[2025-06-16] MEDS ORDERED: SUCR1TA PO (10:07)
[2025-06-16] MEDS ORDERED: LEVO112T2 PO (10:17)
[2025-06-16 13:00] VITALS: BP 141/75; TEMP 98.2; O2SAT 97
== END 2025-06-16 14:05 | disposition home or self-care (01) | DRG 327 ==
LOC: M ED 17:42 → M SDC 21:34 → M ICU 06-08 01:27 → M MSPAV 06-10 16:06
PROVIDERS: ADMIT Surgery; ATTEND Family Medicine
PROC: 30233N1 Transfusion of Nonautologous Red Blood Cells into Peripheral Vein, Percutaneous Approach (ICD-10-PCS; 2025-06-07)
PROC: 30233K1 Transfusion of Nonautologous Frozen Plasma into Peripheral Vein, Percutaneous Approach (ICD-10-PCS; 2025-06-07)
PROC: 0DQ64ZZ Repair Stomach, Percutaneous Endoscopic Approach (ICD-10-PCS; principal; 2025-06-08)
PROC: 8E0W4CZ Robotic Assisted Procedure of Trunk Region, Percutaneous Endoscopic Approach (ICD-10-PCS; 2025-06-08)
DX: K25.5 Chronic or unspecified gastric ulcer with perforation (principal); D62 Acute posthemorrhagic anemia; R18.8 Other ascites; K52.1 Toxic gastroenteritis and colitis; I48.91 Unspecified atrial fibrillation; I25.10 Atherosclerotic heart disease of native coronary artery without angina pectoris; E03.9 Hypothyroidism, unspecified; I10 Essential (primary) hypertension; I95.9 Hypotension, unspecified; I73.9 Peripheral vascular disease, unspecified; J44.9 Chronic obstructive pulmonary disease, unspecified; K21.9 Gastro-esophageal reflux disease without esophagitis; G89.29 Other chronic pain; E87.6 Hypokalemia; T50.8X5A Adverse effect of diagnostic agents, initial encounter; E87.70 Fluid overload, unspecified; Z79.82 Long term (current) use of aspirin; Z79.01 Long term (current) use of anticoagulants; Z79.02 Long term (current) use of antithrombotics/antiplatelets; Z79.890 Hormone replacement therapy; Z79.899 Other long term (current) drug therapy; Z95.810 Presence of automatic (implantable) cardiac defibrillator; Z87.891 Personal history of nicotine dependence

== ENCOUNTER → 2025-06-27 | Outpatient (REF) | payer MEDICARE, OTHER ==
[~2025-06-27] MED LIST changes: +AMIO200T54 PO; +ATOR80TA59 PO; +BISO5TAB14 PO; +CLOP75TA2 PO; +IPRA3SP; +LEVO100T5 PO; +PANT-23 PO; +SUCR1TA PO; +VITA100093 PO
[2025-06-27 19:19] LABS: IRON (FE) 29.0 UG/DL (65-175)
[2025-06-27 19:21] LABS: VITAMIN B12 LEVEL 474.0 PG/ML (211-911)
[2025-06-27 19:22] LABS: PERCENT SATURATION 9.0 % (19.7-50.0)
[2025-06-29 15:47] LABS: PROTEIN, TOTAL SO 5.7 g/dL (6.1-8.1)
[2025-07-04 06:38] LABS: ALBUMIN SO 3.6 g/dL (3.8-4.8); ALPHA 1 GLOBULINS SO 0.3 g/dL (0.2-0.3); ALPHA 2 GLOBULINS SO 0.8 g/dL (0.5-0.9); BETA 2 GLOBULIN SO 0.3 g/dL (0.2-0.5); BETA GLOBULIN SO 0.4 g/dL (0.4-0.6); GAMMA GLOBULINS SO 0.3 g/dL (0.8-1.7)
== END ==
LOC: M LAB REF 17:04
PROVIDERS: ATTEND Internal Medicine Nephrology
DX: Z79.899 Other long term (current) drug therapy (principal); D63.1 Anemia in chronic kidney disease

== ENCOUNTER → 2025-07-07 | Outpatient (CLI) | payer MEDICARE, OTHER ==
[2025-07-07 14:05] LABS: PLATELET COUNT, AUTOMATED 385 10^3/uL (150-450)
[2025-07-07 14:28] LABS: INR 2.85
[2025-07-07 14:35] LABS: CALCIUM LEVEL 9.4 MG/DL (8.3-10.6); CARBON DIOXIDE LEVEL 27.0 MMOL/L (20-31); CHLORIDE LEVEL 104.0 MMOL/L (98-107); CREATININE FOR GFR 1.19 MG/DL (0.70-1.30); GLOMERULAR FILTRATION RATE 64.1 (>42); POTASSIUM SERUM 3.4 MMOL/L (3.5-5.1); SODIUM LEVEL 140.0 MMOL/L (136-145)
[2025-07-07 15:01] LABS: COLLAGEN EPINEPHRINE 113 SECONDS (74-162)
== END ==
LOC: M LAB 13:18
PROVIDERS: ATTEND Physician Assistant
DX: Z01.818 Encounter for other preprocedural examination (principal); I65.23 Occlusion and stenosis of bilateral carotid arteries

== ENCOUNTER 2025-07-19 09:45 | Outpatient (CLI) | payer MEDICARE, OTHER ==
[~2025-07-19] VITALS: Ht 167.6 cm; Wt 65.0 kg
[~2025-07-19 09:45] MED LIST changes: +ALBUTEROL SULFATE 2.5 MG/0.5 ML INH CONCENTRATE NEB SOLN INH PRN; +EPINEPHrine INJ 1 MG/ML 1ML AMP IM PRN; +NS (Normal Saline) 0.9% 1,000 ML IV SCH; +diphenhydrAMINE 50 MG/ML VIAL IV PRN
[2025-07-19 10:37] VITALS: BP 124/62; O2SAT 96
[2025-07-19] MEDS: IRON SUCROSE 300 MG in NS 250 ML IV ONE (11:13)
[2025-07-19 13:10] VITALS: BP 144/70; O2SAT 98
== END 2025-07-19 13:10 ==
LOC: M INFU 09:45
PROVIDERS: ATTEND Internal Medicine Nephrology
DX: E61.1 Iron deficiency (principal); D63.1 Anemia in chronic kidney disease
CPT/HCPCS: 96365; 96366; J1756

== ENCOUNTER 2025-07-26 09:27 | Outpatient (CLI) | payer MEDICARE, OTHER ==
[2025-07-26 09:40] VITALS: BP 132/66; O2SAT 97
[2025-07-26] MEDS: IRON SUCROSE 300 MG in NS 250 ML IV ONE (09:57)
[2025-07-26 11:42] VITALS: BP 145/68; O2SAT 97
== END 2025-07-26 11:05 | disposition home or self-care (01) ==
LOC: M INFU 09:27
PROVIDERS: ATTEND Internal Medicine Nephrology
DX: E61.1 Iron deficiency (principal); N18.9 Chronic kidney disease, unspecified; D63.1 Anemia in chronic kidney disease
CPT/HCPCS: 96365; 96366; J1756

== ENCOUNTER 2025-08-02 07:57 | Outpatient (CLI) | payer MEDICARE, OTHER ==
[~2025-08-02] VITALS: Ht 162.6 cm; Wt 65.0 kg
[~2025-08-02 07:57] MED LIST changes: -NS (Normal Saline) 0.9% 1,000 ML IV SCH
[2025-08-02 08:16] VITALS: BP 144/64; O2SAT 99
[2025-08-02] MEDS: IRON SUCROSE 300 MG in NS 250 ML OVER 90 MIN. IV ONE (08:31)
[2025-08-02 10:09] VITALS: BP 146/74; O2SAT 99
== END 2025-08-02 10:10 | disposition home or self-care (01) ==
LOC: M INFU 07:57
PROVIDERS: ATTEND Internal Medicine Nephrology
DX: E61.1 Iron deficiency (principal); N18.9 Chronic kidney disease, unspecified; D63.1 Anemia in chronic kidney disease
CPT/HCPCS: 96365; J1756